=== PATIENT | male | born 1995 | race Caucasian/White ===

== ENCOUNTER 2016-07-12 20:34 | Emergency (ER) | payer OTHER ==
[2016-07-12 20:58] VITALS: BP 151/86; PULSE 78; RESP 18; TEMP 98.7; O2SAT 95
[2016-07-12] MEDS ORDERED: OFLOXACIN 0.3% SOLN PREPACK OPHT.BTL TAKEHOME ONE (20:59)
[2016-07-12] MEDS ORDERED: AZITHROMYCIN 250 MG TAB PO ONE (21:33)
--- NOTE | 2016-07-12 21:36 | UCPHY ---
H & P Time Seen by Provider: 07/12/16 20:49 Patient Type: New HPI/ROS: This patient has left eye redness the this started over the past 24 hours. He also reports nasal congestion over the past 5 days, mild sore throat and moderate right ear pressure/pain-achy in nature with diminished hearing on the right side. Finally, he reports a mild cough the attributes to a postnasal drip. He has partial improvement of his ear pain from [id number] analgesics with no other exacerbating or alleviating factors. ROS: No high fevers or chills. No confusion. No pleuritic pain. No shortness of breath. No vision changes. No eye pain. 7 point ROS is otherwise negative. Smoking Status: Former smoker Physical Exam: Physical Exam Vital signs are normal. General: No acute distress HEENT: Nose: Clear discharge bilaterally. No sinus tenderness to percussion. Ears: External canals and tympanic membranes are clear with no erythema or abnormal findings on the left. Right external canals clear right TM is dull and erythematous with purulent effusion. Oropharynx: Mild posterior pharyngeal erythema with no exudates. No dysphonia. No drooling or stridor. Eyes: Pupils equal and react to light. Extraocular motions are intact. He has conjunctival injection to the left eye. No purulent discharge. Lids and lashes are normal. Lungs: Clear to auscultation bilaterally with no rales, rhonchi or wheeze. No respiratory distress. Cardiac: Regular rate and rhythm with no murmur gallop or rub Skin: No rash or pallor. Neuro: Alert with no focal deficits noted. Initial differential diagnosis: Viral versus bacterial conjunctivitis, otitis media, strep versus viral pharyngitis Constitutional: Initial Vital Signs Temperature (C) 37.1 C 07/12/16 20:55 Heart Rate 78 07/12/16 20:55 Respiratory Rate 18 07/12/16 20:55 Blood Pressure 151/86 H 07/12/16 20:55 O2 Sat (%) 95 07/12/16 20:55 O2 Delivery Mode Room Air Allergies/Adverse Reactions: No Known Allergies Allergy (Unverified 07/12/16 20:54) Home Medications: Medication Instructions Recorded Azithromycin [Zithromax] 250 mg PO DAILY #4 tab 07/12/16 Venlafaxine Xr [Effexor Xr 75MG 07/12/16 (*)] MDM/Departure - MDM Diagnostics: Rapid strep is negative Medications Given: Discontinued Medications Azithromycin (Zithromax) 500 mg PO EDNOW ONE PRN Reason: Protocol Stop: 07/12/16 21:34 Last Admin: 07/12/16 21:43 Dose: 500 mg Ofloxacin (Ocuflox 0.3% Opht Drops Prepack) 1 btl TAKEHOME EDNOW ONE Stop: 07/12/16 21:00 Last Admin: 07/12/16 21:18 Dose: 1 btl ED Course/Re-evaluation: I counseled the patient regarding conjunctivitis and otitis media. He is treated with Zithromax and Ocuflox - Depart Disposition: Home, Routine, Self-Care Clinical Impression: Otitis media Qualifiers: Otitis media type: suppurative Laterality: right Chronicity: acute Recurrence: not specified as recurrent Spontaneous tympanic membrane rupture: without spontaneous rupture Qualified Code(s): H66.001 - Acute suppurative otitis media without spontaneous rupture of ear drum, right ear Condition: Good Instructions: Otitis Media (ED), Conjunctivitis (ED) Additional Instructions: Diagnosis: Otitis media 2 conjunctivitis Plan: Wash hands frequently Antibiotic drops as prescribed Zithromax antibiotic Ibuprofen and Tylenol for pain as needed. No work tomorrow Return for any significant worsening despite the treatment plan. Stand Alone Forms: Work Excuse Prescriptions: Azithromycin [Zithromax] 250 mg PO DAILY #4 tab Referrals: Neto Gallegos MD [Primary Care Provider] - As per Instructions - PQRS PQRS Measurement: NA
== END 2016-07-12 21:43 | disposition home or self-care (01) ==
LOC: CED 20:34
DX: H66.001 Acute suppurative otitis media without spontaneous rupture of ear drum, right ear (principal); H10.9 Unspecified conjunctivitis; Z87.891 Personal history of nicotine dependence
CPT/HCPCS: 87880-PO; G0463-PO

== ENCOUNTER 2017-02-06 10:48 | Emergency (ER) | payer OTHER ==
[2017-02-06 10:58] VITALS: BP 134/104; PULSE 77; RESP 20; TEMP 98; O2SAT 96
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
== END 2017-02-06 11:14 | disposition home or self-care (01) ==
LOC: CED 10:48
DX: S16.1XXA Strain of muscle, fascia and tendon at neck level, initial encounter (principal); Z87.891 Personal history of nicotine dependence; V49.49XA Driver injured in collision with other motor vehicles in traffic accident, initial encounter; Y92.410 Unspecified street and highway as the place of occurrence of the external cause; Y99.8 Other external cause status; Y93.89 Activity, other specified